=== PATIENT | male | born 1980 | race Two or more races ===

== ENCOUNTER 2018-12-23 03:31 | Emergency (ER) | payer SELFPAY ==
[~2018-12-23] VITALS: Ht 180.3 cm; Wt 90.7 kg
--- NOTE | 2018-12-23 03:35 | NUR ---
Patient came to ER alone. Patient stated he walked her from his home. Patient stated that he had a drink early today and is having alochol withdrawals. Patient is sweating, presenting with tremors, and c/o chest pain.
[2018-12-23] MEDS ORDERED: IV NORMAL SALINE 1000 ML BAG IV ONE ×2 (04:00→04:30)
[2018-12-23] MEDS ORDERED: MAGNESIUM SULFATE/D5W 100 ML IV SCH (04:00)
[2018-12-23] MEDS ORDERED: PANTOPRAZOLE SODIUM 40 MG VIAL IV ONE (04:00)
[2018-12-23] MEDS ORDERED: ONDANSETRON 4 MG/2 ML VIAL IV ONE ×2 (04:00→04:30)
[2018-12-23] MEDS ORDERED: THIAMINE HCL 200 MG/2 ML VIAL IV ONE (04:00)
[2018-12-23] MEDS ORDERED: LORAZEPAM 2 MG/1 ML VIAL IV ONE ×2 (04:00→04:30)
--- NOTE | 2018-12-23 04:00 | NUR ---
ER physician in patients room
[2018-12-23] MEDS ORDERED: ONDANSETRON 4 MG/2 ML VIAL ONE ×2 (04:01→04:42)
[2018-12-23] MEDS ORDERED: LORAZEPAM 2 MG/1 ML VIAL ONE ×2 (04:01→04:42)
[2018-12-23] MEDS ORDERED: MAGNESIUM SULFATE/D5W 100 ML ONE (04:02)
[2018-12-23] MEDS ORDERED: PANTOPRAZOLE SODIUM 40 MG VIAL ONE (04:02)
[2018-12-23 04:03] LABS: BASOPHILS # (AUTO) 0.1 K/uL (0.0-8.0); BASOPHILS % (AUTO) 0.7 % (0.0-2.0); EOSINOPHILS % (AUTO) 0.2 % (0.0-7.0); HEMATOCRIT 42.5 % (36.7-47.1); LYMPHOCYTES # (AUTO) 1.8 K/uL (20.0-40.0); LYMPHOCYTES % (AUTO) 23.4 % (20.5-51.5); MEAN CORPUSCULAR HEMOGLOBIN 34.2 uug (23.8-33.4); MEAN CORPUSCULAR HGB CONC 35 g/dL (32.5-36.3); MEAN CORPUSCULAR VOLUME 96.7 fL (73.0-96.2); MONOCYTES % (AUTO) 13.1 % (0.0-11.0); NEUTROPHILS # (AUTO) 4.7 K/uL (1.8-8.9); NEUTROPHILS % (AUTO) 62.6 % (38.5-71.5); PLATELET COUNT (AUTO) 246 K/uL (152-348); RED BLOOD CELL COUNT(AUTO) 4.39 MIL/uL (4.06-5.63); WHITE BLOOD COUNT (AUTO) 7.6 K/uL (3.6-10.2)
[2018-12-23] MEDS ORDERED: THIAMINE HCL 200 MG/2 ML VIAL ONE (04:03)
[2018-12-23 04:14] LABS: BILIRUBIN,DIRECT 0.2 mg/dL (0.0-0.2); BILIRUBIN,TOTAL 0.8 mg/dL (0.2-1.0); CREATININE 1.1 mg/dL (0.6-1.3); POTASSIUM 3.3 mmol/L (3.5-5.1); TOTAL PROTEIN, SERUM 8.6 g/dL (6.4-8.2)
[2018-12-23] MEDS ORDERED: FOLIC ACID/VITAMIN B COMP W-C TABLET ONE (04:32)
--- NOTE | 2018-12-23 05:59 | NUR ---
Patient states he still feels groggy and unable to self ambulate at this time.
--- NOTE | 2018-12-23 06:38 | NUR ---
did not adminster Ativan and Zofran medication because patients has no episodes of emesis and denies any nausea. In addition, patient was drowsy and stated that he felt groggy from the initial ativan dose. Held the medication for patient safety and patient saturating in low 90s.
--- NOTE | 2018-12-23 07:01 | NUR ---
report given to SHWETA Villa.
--- NOTE | 2018-12-23 07:08 | NUR ---
PT ABLE TO SELF-AMBULATE W/O DIFFICULTY.
--- NOTE | 2018-12-23 07:11 | NUR ---
RECEIVED SHIFT REPORT FROM SHWETA DANIEL.
--- NOTE | 2018-12-23 07:12 | NUR ---
Patient discharged to home in stable conditon. Written and verbal after care instructions given. Patient verbalizes understanding of instructions. ALL BELONGINGS W/ PT. PT SELF-AMBULATED W/O DIFFICULTY. PT STATES HE WILL WALK HOME.
[2018-12-23 07:13] VITALS: BP 111/75
[2018-12-23] MEDS ORDERED: FOLIC ACID/VITAMIN B COMP W-C TABLET PO SCH (09:00)
== END 2018-12-23 07:13 | disposition home or self-care (01) ==
LOC: ER 03:36
DX: F10.239 Alcohol dependence with withdrawal, unspecified (principal); Y90.2 Blood alcohol level of 40-59 mg/100 ml
CPT/HCPCS: 36415; 71045; 80048; 80076; 83690; 84484; 85025; 85730; 93005; 96365; 96375; 99284; C9113; G0480; J2060; J2405; J3411; J3475; 70030-TC; A4663; J7030